=== PATIENT | female | born 1955 | race Caucasian/White ===

== ENCOUNTER → 2022-05-17 09:56 | Outpatient (CLI) | payer OTHER, SELFPAY ==
[2022-05-17 10:40] LABS: COVID19 -Nasal RAPID Negative (Negative)
== END ==
PROVIDERS: PCP Physician Assistant Medical; Visit Provider Surgery
DX: Z01.812 Encounter for preprocedural laboratory examination (principal); Z20.822 Contact with and (suspected) exposure to COVID-19
CPT/HCPCS: 87635; C9803

== ENCOUNTER 2022-05-18 12:39 | Day surgery (SDC) | payer OTHER, SELFPAY ==
--- NOTE | 2022-05-18 | PATH_ITS ---
[facility] Accession Number: [id number] No. of containers..03 Tissue . 01 Material submitted: . PART A: colon - CECAL POLYP PART B: colon - PROXIMAL TRANSVERSE COLON POLYP PART C: rectum - RECTAL POLYP . 01 Diagnosis: A. Cecum, Polyp, Biopsy: Tubular adenoma. . B. Proximal Transverse Colon, Polyp, Biopsy: Tubular adenoma. . C. Rectum, Polyps, Biopsies: Hyperplastic polyps. MRV 05/24/2022 1150 Local . 01 Electronically signed: . Leonor Cannon MD, Pathologist NPI- [id number] . 01 Gross description: . Part A: CECAL POLYP: Received in formalin is 1 fragment(s) of riley, soft tissue measuring 0.2 x 0.1 x 0.1 cm submitted entirely in 1 cassette(s) Part B: PROXIMAL TRANSVERSE COLON POLYP: Received in formalin are multiple fragment(s) of riley, soft tissue measuring 1.7 x 1.5 x 0.1 cm in aggregate submitted entirely in 1 cassette(s) Part C: RECTAL POLYP: Received in formalin are 3 fragment(s) of riley, soft tissue measuring 0.4 x 0.2 x 0.1 cm to 0.2 x 0.2 x 0.1 cm submitted entirely in 1 cassette(s) /CPE 05/19/2022 0842 Local . 01 Pathologist provided ICD-10: D12.0, D12.3, K62.1 . 01 CPT . 475815, 164030, 012009 Specimen Comment: A courtesy copy of this report has been sent to [phone] Performed at: 01 [facility] [address] [place] [address], [place], [place] [id number] MD Terrance Moeller MD Phone: [phone]
[2022-05-18 13:08] VITALS: BP 151/78; PULSE 68; RESP 16; TEMP 36.7; O2SAT 99; BMI 39.4
[2022-05-18] MEDS: LACTATED RINGERS 1,000 ML 42 ML IV (13:17)
--- NOTE | 2022-05-18 13:52 | PM.HP.1 ---
History of Present Illness History of Present Illness Date Patient Seen: 05/18/22 Time Patient Seen: 13:52 Chief complaint: SCREENING COLONSOCOPY Narrative: Prisca is here for colonoscopy for a positive Cologuard test. She did have a colonoscopy 16 years ago. No family history of colon cancer. Patient History Family & Social History Social History: household members spouse Tobacco & Substance use: Smoking Status Never smoker alcohol intake current Substance Use Type does not use Meds Home Medications and Allergies Home Medications Medication Instructions Recorded Confirmed Type sodium sul 1.479 gram-potas ch See Rx Instructions PO PER PKG DIR 05/11/22 Rx 0.188 gram-magnes sul 0.225 gram #24 tabs tablet (Sutab) triamterene 37.5 tab 05/18/22 History mg-hydrochlorothiazide 25 mg tablet Allergies Allergy/AdvReac Type Severity Reaction Status Date / Time No Known Allergies Allergy Unknown Verified 05/18/22 13:16 Exam Vital Signs (past 8 hours): - 05/18/22 13:08 Temperature 98.1 F Pulse Rate 68 Respiratory Rate 16 Blood Pressure 151/78 H Pulse Oximetry 99 Oxygen Delivery Method Room Air Oxygen Delivery Method Room Air Const General: No acute distress Assessment & Plan Assessment and plan (1) Positive colorectal cancer screening using Cologuard test: Status: Acute Plan We reviewed the risks and benefits of colonoscopy and she would like proceed. Time Spent With Patient Critical Care time: I spent a total of [] minutes of critical care time on this patient's care today; this time is exclusive of procedural time.
--- NOTE | 2022-05-18 15:01 | PM.OP.COLON ---
Operative Date/Time/Diagnoses Date of procedure: 05/18/22 Time of procedure: 15:01 Pre-op diagnosis: Positive Cologuard test Post-op diagnosis: same Procedure & Clinicians Study performed: Colonoscopies Same procedure as scheduled: Yes Surgeon: Woody Leo Procedure Notes Procedure in detail: Surgeon: Woody Leo MD Anesthesia: Dr. Jean Procedure: The patient was brought to the endoscopy suite, placed in left lateral decubitus position. The patient was connected to monitoring devices. A time-out was performed. Sedation was administered. Once the patient was adequately sedated, a digital rectal exam was performed and was normal. The scope was then inserted and advanced to the cecum where the appendiceal orifice was identified and photographed. The scope was then slowly withdrawn over greater than 6 minutes. The mucosa was thoroughly inspected. There was a 5 mm polyp in the cecum removed with a cold snare. There was roughly 2 cm polyp in the proximal transverse colon just past the hepatic flexure. This was resected piecemeal with combination of hot snare and cold snare. Some of the pieces had to be divided with the snare to be able to allow passage through the suction channel. We injected tattoo ink just distal to the polypectomy site. There were 2 small rectal polyps removed with cold forceps. The scope was retroflexed in the rectum. No other abnormalities were seen. The scope was straightened and removed. The patient was awakened and brought to recovery. Scope withdrawal time: 22 minutes Sedation time: 27 minutes EBL: 5 mL Findings: 5 mm cecal polyp, 2 cm proximal transverse colon polyp and diminutive rectal polyps Post-procedure Disposition: PACU
[2022-05-18 15:02] VITALS: BP 113/63; PULSE 60; RESP 18; TEMP 36.6; O2SAT 93
[2022-05-18 15:07] VITALS: BP 110/65; PULSE 60; RESP 14; O2SAT 98
[2022-05-18 15:13] VITALS: BP 128/87; PULSE 60; RESP 12; TEMP 36.3; O2SAT 97
[2022-05-18 15:35] VITALS: BP 149/79; PULSE 57; RESP 18; TEMP 36.6; O2SAT 100
== END 2022-05-18 15:38 | disposition home or self-care (01) ==
PROVIDERS: PCP Physician Assistant Medical; Referring Provider Surgery; Visit Provider Surgery
PROC: 0DJD8ZZ Inspection of Lower Intestinal Tract, Via Natural or Artificial Opening Endoscopic (ICD-10-PCS; CPT 45378; principal; 2022-05-18 13:45)
DX: Z12.11 Encounter for screening for malignant neoplasm of colon (principal); R19.5 Other fecal abnormalities; D12.0 Benign neoplasm of cecum; D12.3 Benign neoplasm of transverse colon; K62.1 Rectal polyp
CPT/HCPCS: 45385; 45380; 45381; J2250; J2704; J3010

== ENCOUNTER 2023-07-05 09:56 | Day surgery (SDC) | payer OTHER, SELFPAY ==
--- NOTE | 2023-07-05 | PATH_ITS ---
[facility] Accession Number: [id number] No. of containers..01 Tissue . 01 Material submitted: . colon - COLON, POLYP NEAR TATTOO . 01 Diagnosis: COLON, POLYP NEAR TATTOO: Tubular adenoma. [facility] 07/09/2023 1122 Local . 01 Electronically signed: . Terrance Moeller MD, Pathologist NPI- [id number] . 01 Gross description: . Received in formalin with two patient identifiers and polyp near tattoo, are three riley soft tissue fragments ranging from 0.1 to 0.2 cm in greatest dimension. Submitted entirely in cassette A1. ([id number]) /[facility]ENE 07/09/2023 1122 Local . 01 Pathologist provided ICD-10: D12.6 . 01 CPT . 856982 Specimen Comment: A courtesy copy of this report has been sent to [phone] Performed at: 01 [facility] [address] [place] [address], [place], [place] [id number] MD Terrance Moeller MD Phone: [phone]
[2023-07-05 10:25] VITALS: BP 177/92; PULSE 74; RESP 16; TEMP 36.2; O2SAT 96
--- NOTE | 2023-07-05 10:25 | PM.HP.1 ---
History of Present Illness History of Present Illness Date Patient Seen: 07/05/23 Time Patient Seen: 10:25 Chief complaint: Screening Colonoscopy Narrative: Prisca is a 68-year-old woman who had a colonoscopy in April of 2022 with findings of a 2 cm polyp in the proximal transverse colon that was removed piecemeal. Path came back as tubular adenoma. A tattoo was placed. She returns for her 1 year surveillance colonoscopy today. PFS Social History household members: spouse Smoking Status: Never smoker alcohol intake: current Meds Home Medications and Allergies Home Medications Medication Instructions Recorded Confirmed Type triamterene 37.5 tab 05/18/22 History mg-hydrochlorothiazide 25 mg tablet sodium sul 1.479 gram-potas ch See Rx Instructions PO PER PKG DIR 03/21/23 Rx 0.188 gram-magnes sul 0.225 gram #24 tabs tablet (Sutab) Maxzide-25mg 25 mg PO DAILY 07/05/23 07/05/23 History Allergies Allergy/AdvReac Type Severity Reaction Status Date / Time No Known Allergies Allergy Unknown Verified 07/05/23 10:24 Exam Const General: No acute distress Resp Effort & Inspection: normal respiratory effort Assessment & Plan Assessment and plan (1) Tubular adenoma of colon: Status: Acute Plan We will proceed with a surveillance colonoscopy today.
[2023-07-05] MEDS: LACTATED RINGERS 1,000 ML 150 ML IV (10:31)
--- NOTE | 2023-07-05 11:24 | PM.OP.COLON ---
Operative Date/Time/Diagnoses Date of procedure: 07/05/23 Time of procedure: 11:24 Pre-op diagnosis: History of tubular adenoma Post-op diagnosis: same Procedure & Clinicians Study performed: Colonoscopy Same procedure as scheduled: Yes Surgeon: Woody Leo Procedure Notes Procedure in detail: Surgeon: Woody Leo MD Anesthesia: Leonor Sung CRNA Procedure: The patient was brought to the endoscopy suite, placed in left lateral decubitus position. The patient was connected to monitoring devices. A time-out was performed. Sedation was administered. Once the patient was adequately sedated, a digital rectal exam was performed and was normal. The scope was then inserted and advanced to the cecum where the appendiceal orifice was identified and photographed. The scope was then slowly withdrawn over greater than 6 minutes. The mucosa was thoroughly inspected. The area with the tattoo which was near the hepatic flexure was closely examined. There was no evidence of recurrence the original polyp. There was 1 small polyp adjacent to the tattoo or possibly a polypoid redundancy. It was removed with 2 bites using the Jumbo forceps. No other abnormalities were seen. The scope was retroflexed in the rectum. The scope was straightened and removed. The patient was awakened and brought to recovery. Scope withdrawal time: 9 minutes Sedation time: 14 minutes EBL: 5 mL Findings: Possible small polyp adjacent to the old tattoo but no recurrence within the area of tattoo ink Post-procedure Disposition: PACU
[2023-07-05 11:34] VITALS: BP 115/70; PULSE 64; RESP 16; TEMP 36.2; O2SAT 98
[2023-07-05 11:37] VITALS: BP 106/70; PULSE 66; RESP 16; TEMP 36.2; O2SAT 98
[2023-07-05 11:44] VITALS: BP 135/88; PULSE 78; RESP 16; TEMP 36.3; O2SAT 95
== END 2023-07-05 11:42 | disposition home or self-care (01) ==
PROVIDERS: PCP Physician Assistant Medical; Referring Provider Surgery; Visit Provider Surgery
PROC: 0DJD8ZZ Inspection of Lower Intestinal Tract, Via Natural or Artificial Opening Endoscopic (ICD-10-PCS; CPT 45378; principal; 2023-07-05 10:45)
DX: Z12.11 Encounter for screening for malignant neoplasm of colon (principal); Z86.010 Personal history of colon polyps; D12.6 Benign neoplasm of colon, unspecified
CPT/HCPCS: 45380; J2704